=== PATIENT | female | born 1995 | race Caucasian/White ===

== ENCOUNTER 2021-01-29 12:45 | Observation (INO) | payer OTHER, SELFPAY ==
[2021-01-29 13:05] VITALS: BP 109/72; PULSE 87
[2021-01-29 13:15] VITALS: BMI 25.9
[2021-01-29 13:16] VITALS: BP 85/61; PULSE 82
[2021-01-29 13:30] VITALS: BP 118/78; PULSE 81
[2021-01-29 13:36] VITALS: TEMP 36.6
[2021-01-29 13:45] VITALS: BP 109/72; PULSE 87
--- NOTE | 2021-01-29 13:52 | OBADM ---
This patient, Makayla Tillman, admitted to the OB room OB Post 112 for observation. Patient/family oriented to hospital policies and general routines including ID bracelet, bed and alarms, visiting hours, pain management, procedures, bathroom and other care routines, personal items, smoking policy, room service/diet, and visiting hours. Patient/Family are encouraged to report perceived risks to care and to ask questions if they do not understand what they are told or what they should do.
[2021-01-29 13:56] LABS: Add Urine Microscopic? YES; Appearance Urine Clear (Clear); Bacteria Urine Trace /hpf; Bilirubin Urine Negative (Negative); Blood Urine Negative (Negative); Color Urine Straw (Yellow); Glucose Urine UA Negative (Negative); Ketones Urine Negative (Negative); Leukocyte Esterase Ur Trace LEU/UL (Negative); Nitrate Urine Negative (Negative); Protein Urine Negative (Negative); Specific Grav Ur 1.005 (1.001-1.035); Squamous Epithelial Cell Urine Rare /hpf (Few); Urobilinogen Urine Negative mg/dL (<2.0); WBC Urine 0-3 /hpf
[2021-01-29 14:00] VITALS: BP 113/74; PULSE 86
--- NOTE | 2021-02-01 15:04 | P.PNOB_ITS ---
OB - Triage/Final Diagnosis Visit Information Comments/Additional reasons for admission: I have assessed the risk for this patient, Makayla Tillman, and determined that she would benefit from observation care. Evaluation Laboratory results: Laboratory Tests 01/29/21 13:35 Urine Color Straw Urine Appearance Clear Urine pH 7.0 Ur Specific [place] 1.005 Urine Protein Negative Urine Glucose (UA) Negative Urine Ketones Negative Ur Blood (Man) Negative Urine Nitrate Negative Urine Bilirubin Negative Urine Urobilinogen Negative Leukocyte Esterase Rfl Trace H Urine WBC 0-3 Ur Squamous Epith Cells Rare Urine Bacteria Trace Final Diagnosis (1) Pelvic pain affecting : Code(s): O26.899 - Other specified related conditions, unspecified trimester; R10.2 - Pelvic and perineal pain Status: Acute
== END 2021-01-29 14:20 | disposition home or self-care (01) ==
PROVIDERS: Admitting Provider Obstetrics & Gynecology; PCP Internal Medicine Geriatric Medicine; Visit Provider Obstetrics & Gynecology
DX: O26.893 Other specified pregnancy related conditions, third trimester (principal); R10.2 Pelvic and perineal pain; Z3A.31 31 weeks gestation of pregnancy
CPT/HCPCS: 81001; G0378; G0379

== ENCOUNTER 2021-03-13 11:52 | Outpatient (CLI) | payer OTHER, SELFPAY ==
--- NOTE | ~2021-03-13 | US_ITS ---
EXAMINATION: US OB limited w BPP EXAM DATE: 03/13/2021 13:24 INDICATION: SERGIO, BPP - elevated BP, DFM Elevated BP, DFM. 3rd trimester. TECHNIQUE: Pelvic obstetrical transabdominal sonogram was performed by a technologist. There are mu ltiple grayscale and Doppler images available for interpretation. There are no earlier studies of th is gestation for comparison. FINDINGS: There is a single fetus identified in vertex presentation with a heart rate of 143 beats pe r minute. The placenta is located in the fundal position. There is no sonographic evidence of retrop lacental hemorrhage identified. The amniotic fluid index is 14.8 centimeters, which is normal. BIOPHYSICAL PROFILE (performed by the technologist) breathing (30 sec sustained breathing in 30 minutes): 2 out of 2 movement (3 gross body movements in 30 minutes): 2 out of 2 tone (one episode of jretbuj-[id number]-hmlpscg limb movement): 2 out of 2 Amniotic fluid pocket (2 cm): 2 out of 2 Total score: 8 out of 8 IMPRESSION: 1. Single fetus with heart rate of 143 bpm. 2. Normal biophysical profile score of 8 out of 8. Reviewed, dictated and finalized at location B. S [facility]
[2021-03-13 12:16] VITALS: BP 135/77; PULSE 98
[2021-03-13 12:29] LABS: Basophils Percent Auto 0.1 % (0.2-1.2); Eosinophils Percent Auto 0.2 % (0-4.4); Immature Granulocyte Absolute 0.04 K/mm3 (0.00-0.031); Immature Granulocyte Percent A 0.4 % (0-0.5); Lymphocytes Absolute Auto 1.05 K/mm3 (0.9-3.2); Lymphocytes Percent Auto 11.5 % (18.3-44.2); Mean Corpuscular HGB Conc 32.4 g/dl (32-36); Mean Corpuscular Hemoglobin 28.2 pg (26-34); Mean Corpuscular Volume 87.1 fl (80-100); Mean Platelet Volume 11.7 fl (7.4-10.4); Monocytes Absolute Auto 0.7 K/mm3 (0.1-0.6); Monocytes Percent Auto 7.6 % (2.6-8.5); Neutrophils Absolute Auto 7.3 K/mm3 (1.3-6.7); Neutrophils Percent Auto 80.2 % (45.5-73.1); Platelet Count Result 138 k/mm3 (150-375); Red Blood Count 4.25 M/mm3 (4.2-5.4); Red Cell Distribution Width 13.2 % (11.5-14.5); White Blood Count 9.1 K/mm3 (4.5-10.0)
[2021-03-13 12:31] VITALS: BP 130/78; PULSE 105
[2021-03-13 12:39] LABS: Add Urine Microscopic? YES; Alanine Aminotransferase 31 U/L (4-35); Alkaline Phosphatase 169 U/L (38-126); Anion Gap 11 mmol/L (8-16); Appearance Urine Cloudy (Clear); Aspartate Amino Transferase 29 U/L (14-36); Bacteria Urine Trace /hpf; Bilirubin Urine Negative (Negative); Bilirubin,Total 0.2 mg/dL (0.2-1.3); Blood Urea Nitrogen 9 mg/dL (7-17); Blood Urine Negative (Negative); Carbon Dioxide 21 mmol/L (22-30); Chloride 100 mmol/L (98-107); Color Urine Yellow (Yellow); Estimated Glomerular Filt Rate > 60; Glucose 96 mg/dL (65-110); Glucose Urine UA Negative (Negative); Ketones Urine Negative (Negative); Leukocyte Esterase Ur 2+ LEU/UL (NEGATIVE); Nitrate Urine Negative (Negative); Potassium 3.7 mmol/L (3.4-5.0); Protein Urine Negative (Negative); RBC Urine 0-2 /hpf (0-2); Sodium 132 mmol/L (137-145); Squamous Epithelial Cell Urine Few /hpf (Few); Uric Acid 6.1 mg/dL (2.5-7.5); Urobilinogen Urine Negative mg/dL (<2.0); WBC Urine 0-3 /hpf (0-3)
[2021-03-13 12:46] VITALS: BP 120/68; PULSE 94
[2021-03-13 13:13] LABS: Total Protein Urine Random 11 mg/dL; Ur Ttl Prot Creatinine Ratio 0.18 mg/mg (0-0.20)
== END 2021-03-13 13:43 | disposition home or self-care (01) ==
LOC: ANHOBOP 11:58 → ANHOBPP 11:58
PROVIDERS: Visit Provider Obstetrics & Gynecology
DX: O13.9 Gestational [pregnancy-induced] hypertension without significant proteinuria, unspecified trimester (principal); Z3A.00 Weeks of gestation of pregnancy not specified
CPT/HCPCS: 36415; 59025; 76815; 76819; 80053; 81001; 82570; 84156; 84550; 85025; 87077; 87086; 87088; 99199

== ENCOUNTER 2021-03-22 20:30 | Inpatient (IN) | payer OTHER, SELFPAY ==
[2021-03-22] VITALS (11 sets, daily range): BP systolic 116–143; BP diastolic 71–91; PULSE 81–109; RESP 18; TEMP 36.9; BMI 28.9
--- NOTE | 2021-03-22 20:30 | LDADM ---
This patient, Makayla Tillman, was admitted to Labor/Delivery/Recovery 106 on 03/22/21 at 20:31. Plans for labor, pain management and were discussed with patient. Patient/family oriented to hospital policies and general routines including ID bracelet, bed and alarms, visiting hours, pain management, procedures, bathroom and other care routines, personal items, smoking policy, room service/diet and guest tray routines, infant security routines, and visiting hours. Patient/Family are encouraged to report perceived risks to care and to ask questions if they do not understand what they are told or what they should do. See OBIX for further documentation.
[2021-03-22 21:20] LABS: Basophils Percent Auto 0.2 % (0.2-1.2); Eosinophils Absolute Auto 0.1 K/mm3 (0-0.3); Eosinophils Percent Auto 0.7 % (0-4.4); Hematocrit 35.2 % (37.0-47.0); Hemoglobin 11.6 g/dL (12.0-15.0); Immature Granulocyte Absolute 0.05 K/mm3 (0.00-0.031); Immature Granulocyte Percent A 0.6 % (0-0.5); Lymphocytes Absolute Auto 1.68 K/mm3 (0.9-3.2); Lymphocytes Percent Auto 18.6 % (18.3-44.2); Mean Corpuscular Hemoglobin 28.2 pg (26-34); Mean Corpuscular Volume 85.4 fl (80-100); Mean Platelet Volume 12.3 fl (7.4-10.4); Monocytes Absolute Auto 0.7 K/mm3 (0.1-0.6); Monocytes Percent Auto 7.3 % (2.6-8.5); Neutrophils Absolute Auto 6.6 K/mm3 (1.3-6.7); Neutrophils Percent Auto 72.6 % (45.5-73.1); Platelet Count Result 141 k/mm3 (150-375); Red Blood Count 4.12 M/mm3 (4.2-5.4); Red Cell Distribution Width 12.9 % (11.5-14.5)
[2021-03-22 21:21] LABS: Add Urine Microscopic? NO; Appearance Urine Clear (Clear); Bilirubin Urine Negative (Negative); Blood Urine Negative (Negative); Color Urine Straw (Yellow); Glucose Urine UA Negative (Negative); Ketones Urine Negative (Negative); Leukocyte Esterase Ur Negative LEU/UL (NEGATIVE); Nitrate Urine Negative (Negative); Protein Urine Negative (Negative); Specific Grav Ur 1.006 (1.001-1.035); Urobilinogen Urine Negative mg/dL (<2.0)
[2021-03-22 21:28] LABS: Total Protein Urine Random 13 mg/dL; Ur Ttl Prot Creatinine Ratio 0.42 mg/mg (0-0.20)
[2021-03-22 21:31] LABS: Alanine Aminotransferase 31 U/L (4-35); Albumin Level 3.6 g/dL (3.5-5.1); Alkaline Phosphatase 171 U/L (38-126); Anion Gap 8 mmol/L (8-16); Aspartate Amino Transferase 27 U/L (14-36); Bilirubin,Total 0.2 mg/dL (0.2-1.3); Blood Urea Nitrogen 10 mg/dL (7-17); Calcium 9.4 mg/dL (8.4-10.2); Carbon Dioxide 23 mmol/L (22-30); Chloride 103 mmol/L (98-107); Estimated Glomerular Filt Rate > 60; Glucose 107 mg/dL (65-110); Potassium 3.7 mmol/L (3.4-5.0); Sodium 134 mmol/L (137-145); Uric Acid 6.5 mg/dL (2.5-7.5)
[2021-03-22] MEDS: LACTATED RINGERS 1,000 ML 125 ML IV CONT (22:22)
[2021-03-22] MEDS: DINOPROSTONE 10 MG VAG INSERT VAGINAL (22:22)
[2021-03-22] MEDS: diphenhydrAMINE HCl CAP 25 MG CAPSULE PO (22:55)
[2021-03-22] MEDS: AMPICILLIN 2 GM/NS 100 ML 2 GM/100 ML BAG IVPB (23:16)
[2021-03-22] MEDS: CALCIUM CARBONATE (TUMS) 500 MG (200 MG ELEMENTAL) PO (23:18)
[2021-03-23] VITALS (79 sets, daily range): BP systolic 97–139; BP diastolic 57–93; PULSE 75–135; RESP 16–20; TEMP 36.8–37.7; O2SAT 97–100
[2021-03-23] MEDS: AMPICILLIN 1 GM/NS 50 ML 1 GM/50 ML BAG IVPB ×3 (03:15→11:12)
--- NOTE | 2021-03-23 08:18 | WPDANESEPP ---
Anes - Eval Pre Procedure Procedure: labor pain management Date/Time: 03/23/21 08:18 Surgeon: Eitan Preop Diagnosis: pain during labor Pre Op Diagnosis: elevated blood pressure Patient Data Age: 25 Gender: F Height: 1.6 m Weight: 74 kg Last Vital Signs Temp 98.3 F 03/23/21 06:34 Pulse 88 03/23/21 06:36 Resp 18 03/23/21 06:34 BP 128/86 03/23/21 06:36 Allergies Allergy/AdvReac Type Severity Reaction Status Date / Time vancomycin AdvReac Itching Verified 03/22/21 22:56 Home Medications Medication Instructions Recorded Confirmed Type PNV cmb#95-ferrous fumarate-FA 1 tablet PO DAILY 02/27/21 03/22/21 History [] Laboratory Tests 03/22/21 03/22/21 03/22/21 20:59 20:59 20:59 WBC 9.0 K/mm3 K/mm3 (4.5-10.0) RBC 4.12 M/mm3 L M/mm3 (4.2-5.4) Hgb 11.6 g/dL L g/dL (12.0-15.0) Hct 35.2 % L % (37.0-47.0) MCV 85.4 fl fl (80-100) MCH 28.2 pg pg (26-34) MCHC 33.0 g/dl g/dl (32-36) RDW 12.9 % % (11.5-14.5) Plt Count 141 k/mm3 L k/mm3 (150-375) MPV 12.3 fl H fl (7.4-10.4) Immature Gran % (Auto) 0.6 % H % (0-0.5) Neut % (Auto) 72.6 % % (45.5-73.1) Lymph % (Auto) 18.6 % % (18.3-44.2) [place] % (Auto) 7.3 % % (2.6-8.5) Eos % (Auto) 0.7 % % (0-4.4) Baso % (Auto) 0.2 % % (0.2-1.2) Lymph # (Auto) 1.68 K/mm3 K/mm3 (0.9-3.2) [place] # (Auto) 0.7 K/mm3 H K/mm3 (0.1-0.6) Eos # (Auto) 0.1 K/mm3 K/mm3 (0-0.3) Baso # (Auto) 0.0 K/mm3 K/mm3 (0.0-0.1) Abs Immat Gran (auto) 0.05 K/mm3 H K/mm3 (0.00-0.031) Absolute Neuts (auto) 6.6 K/mm3 K/mm3 (1.3-6.7) Absolute Nucleated RBC 0.0 K/mm3 K/mm3 (0.0-0.012) Nucleated RBC % 0.0 % % (0.0-0.2) Sodium Potassium Chloride Carbon Dioxide Anion Gap BUN Creatinine Estim Creat Clear Calc Estimated GFR Glucose Uric Acid Calcium Total Bilirubin AST ALT Alkaline Phosphatase Total Protein Albumin Urine Color Straw (Yellow) Urine Appearance Clear (Clear) Urine pH 6.0 (5.0-9.0) Ur Specific [place] 1.006 (1.001-1.035) Urine Protein Negative mg/dL mg/dL (Negative) Urine Glucose (UA) Negative mg/dL mg/dL (Negative) Urine Ketones Negative mg/dL mg/dL (Negative) Ur Blood (Man) Negative (Negative) Urine Nitrate Negative (Negative) Urine Bilirubin Negative (Negative) Urine Urobilinogen Negative mg/dL mg/dL (<2.0) Ur Leukocyte Esterase Negative AYE/UL AYE/UL (NEGATIVE) U Random Total Protein 13 mg/dL mg/dL Urine Creatinine 31.0 mg/dL mg/dL Protein/Creat Ratio 2 0.42 mg/mg H mg/mg (0-0.20) RPR Blood Type Antibody Screen 03/22/21 03/22/21 03/22/21 20:59 22:18 22:18 WBC RBC Hgb Hct MCV MCH MCHC RDW Plt Count MPV Immature Gran % (Auto) Neut % (Auto) Lymph % (Auto) [place] % (Auto) Eos % (Auto) Baso % (Auto) Lymph # (Auto) [place] # (Auto) Eos # (Auto) Baso # (Auto) Abs Immat Gran (auto) Absolute Neuts (auto) Absolute Nucleated RBC Nucleated RBC % Sodium 134 mmol/L L mmol/L (137-145) Potassium 3.7 mmol/L mmol/L (3.4-5.0) Chloride 103 mmol/L mmol/L (98-107)
--- NOTE | 2021-03-23 10:40 | PM.IMHP ---
H&P: HPI History of Present Illness Date/Time: 03/23/21 10:30 Makayla is a 25yo @ 39.2wks (PURVI 03/28/21) who presented to L&D w/ elevated blood pressures (mild range), headache, and blurred vision. She was found to have a urine P/C ratio of 0.42. She was admitted for cervidil IOL. She reports good movement. Irregular contractions. No VB or LOF. Her is complicated by: - Rh negative ( also rh negative) - GBS positive - Rubella non-immune Chief Complaint: elevated blood pressure Review of Systems Review of Systems: All systems reviewed & are unremarkable except as noted in HPI and below (HPI) [facility] Family History Family History Other No pertinent family history Social History Social History Smoking status: Never smoker Substance use: never Spiritual care concerns: No Meds Home Medications and Allergies Home Medications Medication Instructions Recorded Confirmed Type PNV cmb#95-ferrous fumarate-FA 1 tablet PO DAILY 02/27/21 03/22/21 History [] Allergies Allergy/AdvReac Type Severity Reaction Status Date / Time vancomycin AdvReac Itching Verified 03/22/21 22:56 Vital Signs Vital Signs - 24 hr 03/22/21 20:45 03/22/21 21:01 03/22/21 21:16 Temperature Pulse Rate 99 99 93 Respiratory Rate Blood Pressure 130/88 123/82 122/77 03/22/21 21:31 03/22/21 22:06 03/22/21 22:33 Temperature 36.9 C Pulse Rate 88 81 Respiratory Rate 18 Blood Pressure 116/71 143/88 H 03/22/21 22:46 03/22/21 23:01 03/22/21 23:16 Temperature Pulse Rate 99 89 109 H Respiratory Rate Blood Pressure 137/83 132/87 128/90 03/22/21 23:31 03/22/21 23:46 03/23/21 00:01 Temperature Pulse Rate 84 96 87 Respiratory Rate 18 Blood Pressure 128/84 136/91 H 121/80 03/23/21 00:16 03/23/21 00:54 03/23/21 03:19 Temperature 36.8 C Pulse Rate 77 86 Respiratory Rate 18 Blood Pressure 126/81 123/73 03/23/21 04:26 03/23/21 06:34 03/23/21 06:36 Temperature 36.9 C 36.8 C Pulse Rate 88 Respiratory Rate 18 18 Blood Pressure 128/86 Exam Const: General: cooperative, healthy appearing, comfortable and no acute distress Resp: Effort & Inspection: normal respiratory effort Cardio: Rate: regular rate GI: GI Palp: No abdominal tenderness and Yes Soft to palpation : Other: FHT's:150's/mod [place]/ + accels/ no decels - cat 1 TOCO: irregular ctxs Cervix:/-2 Membranes: AROM, clear @ 1035 Presentation: cephalic Skin: General skin exam: normal color Neuro: General: patient oriented x3 Extrem: General: normal to inspection Psych: Appearance: grossly normal Affect: normal affect Attitude: cooperative H&P: Results Labs Labs: Short CBC 03/22/21 Range/Units 20:59 WBC 9.0 (4.5-10.0) K/mm3 Hgb 11.6 L (12.0-15.0) g/dL Hct 35.2 L (37.0-47.0) % Plt Count 141 L (150-375) k/mm3 BMP 03/22/21 20:59 Sodium 134 L Potassium 3.7 Chloride 103 Carbon Dioxide 23 BUN 10 Creatinine 0.60 L Glucose 107 Calcium 9.4 Liver Function 03/22/21 Range/Units 20:59 Total Bilirubin 0.2 (0.2-1.3) mg/dL AST 27 (14-36) U/L ALT 31 (4-35) U/L Alkaline Phosphatase 171 H (38-126) U/L Albumin 3.6 (3.5-5.1) g/dL Urine 03/22/21 Range/Units 20:59 Urine Color Straw (Yellow) Urine Appearance Clear (Clear) Urine pH 6.0 (5.0-9.0) Ur Specific [place] 1.006 (1.001-1.035) Urine Protein Negative (Negative) mg/dL Urine Glucose (UA) Negative (Negative) mg/dL Assessment and Plan Assessment and plan (1) Pre-eclampsia: Qualifiers: Trimester: third trimester Qualified Code(s): O14.93 - Unspecified pre-eclampsia, third trimester Code(s): O14.90 - Unspecified pre-eclampsia, unspecified trimester Status: Acute Additional Plan - Admitted o
--- NOTE | 2021-03-23 10:40 | WPDHPUPDATE1 ---
History and Physical Update Update Date/Time: 03/23/21 10:40 History and Physical has been reviewed, including an updated exam of the patient. There are NO changes in the patient's condition. Risks, benefits, and alternatives have been discussed and questions answered. Patient agrees to proceed with procedure.
[2021-03-23] MEDS: LACTATED RINGERS 1,000 ML 125 ML IV CONT ×2 (11:12→12:47)
[2021-03-23] MEDS: fentaNYL CITRATE INJ (*CRX) 100 MCG/2 ML VIAL 50 MCG IV PUSH ×2 (11:32→11:39)
[2021-03-23] MEDS: CALCIUM CARBONATE (TUMS) 500 MG (200 MG ELEMENTAL) PO (12:47)
[2021-03-23] MEDS: OXYTOCIN 30 UNITS/NS 500 ML 30 UNITS/500 ML BAG IV CONT (12:48)
--- NOTE | 2021-03-23 15:17 | PM.OBPRVD ---
OB - Delivery Note Procedure Delivery date: 03/23/21 events: Induced HTN Intrapartal events: None Induction method: per cervidil protocol Delivery augmentation: rupture of membranes and pitocin Delivery monitor: external FHT and external uterine Route of delivery: Laceration Description: Periurethral and Perineal - 1st Degree Delivery repair: vicryl Specimen: Yes Quantitative Blood Loss (ml): 250 Anesthesia type: Epidural Disposition: floor Baby Date of : 03/23/21 Time of : 14:47 Weeks of gestation at delivery: 39 (.2) gender: Male Weight (pounds): 6 Weight (ounces): 9 presentation: vertex position: Left Occiput Anterior Placenta delivery description: Expressed cord vessel description: 3 Vessels, Nuchal Cord, Loose and Delayed Cord Clamping score one minute: 8 score five minutes: 9 Narrative: After epidural placement, Makayla's labor rapidly progressed and she went from 4 cm to completely dilated with strong desire to push. She pushed for approximately 15 minutes and delivered the head over intact perineum. A nuchal cord was noted but loose and delivered through. She easily delivered the 's shoulders and body without complication. He had spontaneous cry and was immediately placed skin to skin. Delayed cord clamping was performed. The umbilical cord was then clamped and cut. With Pitocin running and gentle downward traction on the cord, the placenta delivered without complications. Bimanual massage was performed and good fundal tone was noted. The patient was examined and a right periurethral and first-degree perineal laceration were noted. They were repaired in the normal fashion using 3-0 Vicryl. Good fundal tone with minimal bleeding was noted. Sponge, lap, instrument, needle counts were correct at the end of the procedure. Mom and baby were left bonding in the birthing suite in a stable condition.
[2021-03-23] MEDS: OXYTOCIN 30 UNITS/NS 500 ML 30 UNITS/500 ML BAG 125 UNITS IV CONT (15:19)
[2021-03-23] MEDS: WITCH HAZEL 40 PADS 1 PAD TOPICAL (17:30)
[2021-03-23] MEDS: BENZOCAINE 20% AER SPR (*SP) 56 GM CAN 1 SPRAY TOPICAL (17:30)
--- NOTE | 2021-03-23 17:45 | PC.NURSE ---
Patient transferred to post room #286 via wheelchair. Support person present. Oriented to unit, room, information board, rooming in, admission packet and security measures. Patient verbalizes understanding.
[2021-03-23] MEDS: IBUPROFEN 600 MG TABLET PO (18:05)
[2021-03-24 03:00] VITALS: BP 122/81; PULSE 95; RESP 16; TEMP 36.6; O2SAT 100
[2021-03-24] MEDS: IBUPROFEN 600 MG TABLET PO ×2 (04:16→13:40)
[2021-03-24 04:31] LABS: Hematocrit 34.2 % (37.0-47.0); Hemoglobin 10.7 g/dL (12.0-15.0)
[2021-03-24] MEDS: MULTIVIT/MIN/PREN/FOL AC/IRON TABLET 1 TAB PO (09:18)
[2021-03-24] MEDS: ACETAMINOPHEN 325 MG TABLET 650 MG PO ×2 (09:22→22:44)
[2021-03-24 10:15] VITALS: BP 120/79; PULSE 85; RESP 18; TEMP 36.6
--- NOTE | 2021-03-24 10:24 | WPDANLDPN2 ---
Anes-Prog Note L&D Date/Time: 03/24/21 10:24 Comfortable throughout: labor and delivery Neuraxial method: epidural Epidural/Spinal procedure site: clean & non-tender Neuro status: Neuro function grossly intact. Cardiovascular status: normal Respiratory status: normal Airway patency: baseline Mental status: baseline Post-Op hydration status: normal Vital Signs: Last Vital Signs Temp 98 F 03/24/21 03:00 Pulse 95 03/24/21 03:00 Resp 16 03/24/21 03:00 BP 122/81 03/24/21 03:00 Pulse Ox 100 03/24/21 03:00 Pain score (VAS): 0 I/O: Intake & Output 03/23/21 03/24/21 03/24/21 23:59 07:59 15:59 Intake Total 1200 Output Total 136 1150 Balance -136 50 Post-procedural complaints: none Patient feedback: Patient satisfied with anesthetic care.
--- NOTE | 2021-03-24 12:09 | P.PNOB_ITS ---
OB - PN: Subj Subjective Date/time seen: 03/24/21 11:01 PPD#1 Makayla strickland doing well today. She reports her pain is controlled with PO pain meds. Her bleeding is getting yarn examiner skeins. She has tolerated regular diet, voided, passed gas, and ambulated. She is breast feeding. She would like her son circumcised. She would like to go home tomorrow. She denies fever, chills, CP, SOB, N/V, [place], vision changes, dizziness or palpitations. OB - PN: Obj Data Labs CBC & Chem 7: 03/24/21 04:21 03/22/21 20:59 Labs: Laboratory Results - last 24 hr 03/24/21 04:21 Hgb 10.7 L Hct 34.2 L OB - PN A/P Assessment and Plan (1) Normal vaginal delivery of first : Code(s): O80 - Encounter for full-term uncomplicated delivery Status: Acute (2) Pre-eclampsia: Qualifiers: Trimester: third trimester Qualified Code(s): O14.93 - Unspecified pre- eclampsia, third trimester Code(s): O14.90 - Unspecified pre-eclampsia, unspecified trimester Status: Acute Plan day: 1 Plan: routine care Comments: - BP's normal; asymptomatic - Pelvic rest; take meds as prescribed - ER return precautions: fever, chills, n/v/abd pain, HTN Time Spent With Patient Time: Total time spent is greater than 50% in coordination of care (as documented) at patient's floor/unit and/or counseling patient: Review of Systems Review of Systems: All systems reviewed & are unremarkable except as noted in HPI and below (HPI) Exam Const: General: cooperative, healthy appearing, comfortable and no acute distress Resp: Effort & Inspection: normal respiratory effort Auscultation: clear to auscultation bilaterally Cardio: Rate: regular rate GI: Inspection: non-distended GI Palp: No abdominal tenderness and Yes Soft to palpation Auscultation: normal bowel sounds : Other: fundus firm Skin: General skin exam: normal color Neuro: General: patient oriented x3 Extrem: General: normal to inspection Psych: Appearance: grossly normal Affect: normal affect Attitude: cooperative
[2021-03-24 12:25] VITALS: BP 122/76; PULSE 95; RESP 18
[2021-03-24 17:15] VITALS: BP 125/78; PULSE 87; RESP 18; TEMP 36.6
[2021-03-24 18:30] VITALS: BP 102/67; PULSE 97; RESP 18; TEMP 36.6
[2021-03-24 22:45] VITALS: BP 118/79; PULSE 84; RESP 18; TEMP 36.1
--- NOTE | 2021-03-25 05:36 | PC.NURSE ---
03/25/2021 at 0515 Parents state they viewed the Discharge Video Mother & Baby Care, The First Two Weeks . Parents were given the opportunity and encouraged to ask questions. Patient verbalized understanding of information shared and has been given the mother/baby guide for home reference.
[2021-03-25 07:00] VITALS: BP 114/72; PULSE 79; RESP 16; TEMP 36.6; O2SAT 99
[2021-03-25 08:15] VITALS: BP 126/74; PULSE 80; RESP 18; TEMP 36.3; O2SAT 100
[2021-03-25] MEDS: MULTIVIT/MIN/PREN/FOL AC/IRON TABLET 1 TAB PO (10:27)
[2021-03-25] MEDS: IBUPROFEN 600 MG TABLET PO (10:27)
--- NOTE | 2021-03-25 12:10 | PC.NURSE ---
Mother called out for assist with feeding, reporting pain with feeding, more at latch that will lessen as infant feeds. is unable to freely thrust tongue past gum ridge, frenulum noted both lips flange.. Skin is intact on both nipples, both are reddened and slightly bruised. Discussed frenulum and how it may impact latch, empting the breast and mother's comfort with feeding. Reviewed infant feeding cues, frequencies, duration of feedings, feeding elimination flow sheet, and signs of adequate intake. Demonstrated stimulation techniques to wake for feeding. Assisted with infant to breast. Reviewed positioning/alignment in cross cradle, holding breast in ?U? hold and guided asymmetrical latch on. Reviewed rational for each. Infant able to latch within a few attempts. nursed eagerly with steady draws and occasional swallowing noted, some pausing noted. Mother quickly reports pain. Demonstrated how to adjust latch more deeply while feeding as needed. Reviewed signs of a correct latch, effective nursing and suck swallow ratio. Suggested mother stimulate while feeding to increase stimulation for milk supply, for increased intake and to assist with maintaining deep latch. would slip to shallow latch causing tenderness. Mother reports she can feel the difference in latch with less tenderness. With in a few minutes of nursing mother reports she can feel has drawn nipple in more deeply with slight discomfort. Nipple care reviewed of lanolin after feedings, warm compresses as needed, gel pads provided and reviewed care and cleaning. Advised parents LC will contact care provider and discuss appointment tomorrow for frenulum evaluation.
[2021-03-25 12:15] VITALS: BP 125/74; PULSE 102; RESP 18; TEMP 36.5; O2SAT 98
--- NOTE | 2021-03-25 12:15 | PC.NURSE ---
Consult with pt., discussed conversation with care provider. Parents will see Chocolate Finisher tomorrow at 2 pm. Assisted with to breast, observed mother is able to independently latch infant with appropriate positioning/alignment. eagerly latches on first attempt with long rhythmical draws and frequent swallowing noted. Mother was able to adjust latch more deeply while feeding. Mother reports less nipple discomfort, is feeding as required and waking infant to feed if needed. stressed nipple care. has had at least 8 effective feedings in the past 24 hours, and is currently meeting outcomes for weight, output, jaundice and feeding frequencies. Mother states she feels confident to continue effective at home. Reviewed transition to breast milk, signs of adequate intake, and engorgement/relief. Instructed to call ICP if intake/output less than required. Reviewed regular medications mother is taking. Information provided per [place]. Reviewed community resources on the [facility] website and in the Mom/Baby guide. Information on outpatient services provided. Mother has no further questions at this time. Instructed feeding should be initiated three hours from start of last feeding or if feeding cues are noted before until seen by ICP. Mother voiced understanding of information shared.
[2021-03-25] MEDS: MEASLES,MUMPS,RUBELLA VACCINE 0.5 ML VIAL SUB-Q (12:49)
[2021-03-25 14:38] LABS: Rapid Plasma Reagin Non-Reactive (NonReactive)
--- NOTE | 2021-03-26 07:52 | PM.OBDSVD ---
DS: Admitting Diagnosis Discharge Date 03/25/21 Admitting Diagnosis Elevated blood pressure DS: Discharge Diagnosis Discharge Diagnosis (1) Normal vaginal delivery of first : Code(s): O80 - Encounter for full-term uncomplicated delivery Status: Acute (2) Pre-eclampsia: Qualifiers: Trimester: third trimester Qualified Code(s): O14.93 - Unspecified pre-eclampsia, third trimester Code(s): O14.90 - Unspecified pre-eclampsia, unspecified trimester Status: Acute OB - DS: Summary OB Procedures : NST, PIH Mgmt and Ultrasound OB Procedures Intrapartum: Spontaneous Vag Delivery OB Procedures: : None Peripartum Data Infant Delivery Method: Natural Vaginal Laceration Description: Periurethral and Perineal - 1st Degree complications: none [place] 1: Gender: Male Disposition of : home Status at Discharge Functional status at discharge: independent ambulation Overall status at discharge: patient is back to baseline Time Spent with Patient Time attestation: Total time spent providing and/or coordinating discharge services: Time spent: Less than 30 minutes Exam Const: General: cooperative, healthy appearing, comfortable and no acute distress Resp: Effort & Inspection: normal respiratory effort Auscultation: clear to auscultation bilaterally Cardio: Rate: regular rate GI: Inspection: normal to inspection and non-distended GI Palp: No abdominal tenderness and Yes Soft to palpation Auscultation: normal bowel sounds : Other: fundus firm Skin: General skin exam: normal color Neuro: General: patient oriented x3 Extrem: General: normal to inspection Psych: Appearance: grossly normal Affect: normal affect Attitude: cooperative DS: Data Data Completed and Pending Pending studies at discharge: Pending at discharge 03/23/21 14:52 Surgical [PTH] Routine Labs on day of discharge: Labs from last 24 hours 03/22/21 22:18 RPR Non-reactive Discharge Plan Discharge Attending physician on discharge: Clare Laird Discharging Clinician: Clare Laird Anticipated Discharge Date/Time: 03/25/21 11:00 Patient Disposition: Home, Self-Care Activity: may shower and pelvic rest Diet: regular Discharge Instructions: Education: Mom and Baby Guide and Preeclampsia Handout Given to: Mother Follow-Up: Call your delivering provider's office for an appointment to be seen in: 2 Weeks [facility]. Appointment Date/Time: March 26, 2021 at 10:00 am What to expect at your follow-up visit: Blood Pressure Check Physical Assessment Call [phone] if you are unable to keep your appointment time. BREAST CARE: * Wear a snug supportive bra. * For engorgement discomfort: Breast Feeding: * Apply warm moist washcloths * Express milk as needed to relieve engorgement * Wear loose clothing * For sore nipples: * Identify correct latch-on * Apply warm moist washcloths before and after nursing * Air dry nipples after nursing * May apply Lansinoh cream to nipples EPISIOTOMY/PERINEAL CARE: * Until bleeding stops, use your rico bottle after urinating * Change your pad frequently throughout the day * You may take sitz baths several times a day (fill your bathtub with warm water and soak for 20 minutes.) Do NOT bathe in the water * No tub baths until seen by your physician - You may shower ACTIVITY: * Rest as much as possible. * Do not exercise or lift anything heavier than your baby (such as laundry or other children.) * Avoid stairs or driving as much as possible. * Do not put anything into the vagina. No douching, tampons, or sexual activity until seen by physician. NOTIFY PHYSICIAN IF YOU HAVE ANY QUESTIONS OR IF ANY OF THE FOLLOWING SYMPTOMS [place]
[2021-03-26 09:50] VITALS: BP 126/79; PULSE 82; RESP 16; TEMP 37; O2SAT 99
== END 2021-03-25 14:25 | disposition home or self-care (01) | DRG 807 ==
LOC: ANHLDR 22:11 → ANHOB2 03-23 17:50
PROVIDERS: Admitting Provider Obstetrics & Gynecology; Visit Provider Obstetrics & Gynecology
DX: O99.824 Streptococcus B carrier state complicating childbirth (principal); Z37.0 Single live birth; O14.94 Unspecified pre-eclampsia, complicating childbirth; O70.0 First degree perineal laceration during delivery; O69.81X0 Labor and delivery complicated by cord around neck, without compression, not applicable or unspecified; Z3A.39 39 weeks gestation of pregnancy
CPT/HCPCS: 36415; 80053; 81003; 82570; 84156; 84550; 85014; 85018; 85025; 86592; 86850; 86900; 86901; 87086; 88307; 90710; A9270; J0290; J2590; J3010; J3370; J7120